=== PATIENT | male | born 1985 | race Caucasian/White ===

== ENCOUNTER 2019-05-14 18:35 | Emergency (ER) | payer OTHER, SELFPAY ==
[2019-05-14 18:36] VITALS: BP 152/75; PULSE 81; RESP 16; TEMP 36.8; O2SAT 98
[2019-05-14] MEDS: Lidocaine/Epi/Tetracaine 50 ML 1 APPLIC TOPICAL (19:45)
[2019-05-14] MEDS: Ondansetron 4 MG/2 ML Vial IV (20:08)
[2019-05-14] MEDS: morphine 8 MG/ML Syringe 6 MG IV (20:08)
[2019-05-14 20:28] LABS: Absolute Lymphocyte Count 2.67 X10^3/ul (0.83-4.51); Absolute Neutrophil Count 9.4 X10^3/uL (2.0-7.7); Basophil# 0.01 X10^3/uL; Basophil% 0.1 % (0-1); Eosinophil# 0.13 X10^3/uL; Eosinophils% 0.9 % (0-5); Hemoglobin 14.6 g/dl (13.0-16.5); Lymphocyte # 2.67 X10^3/ul (4.0); Lymphocyte % 19.1 % (19-41); Mean Corpuscular Hgb 28.8 pg (27.0-32.0); Mean Corpuscular Volume 84.8 fL (80-94); Mean Platelet Vol. 12.2 fl (6.2-12.0); Monocyte# 1.73 X10^3/uL; Monocyte% 12.4 % (0-10); Neutrophil # 9.41 X10^3/uL (2.7-7.7); Neutrophil % 67.2 % (47-70); Platelet Count 186 K/mm3 (150-450); RBC Distribution Width CV 12.4 % (11.6-14.6); RBC Distribution Width SD 37.7 fl (35.1-43.9); Red Blood Count 5.07 M/mm3 (4.6-6.2)
[2019-05-14 20:44] LABS: Anion Gap 7 (5-15); BUN 10 mg/dL (7-18); BUN/Creat Ratio 11.7 RATIO (10-20); Calcium,Total 8.4 mg/dL (8.5-10.1); Chloride 107 mmol/L (98-107); Creatinine, Serum 0.86 mg/dL (0.70-1.30); EST Glomerular Filtration Rate 110 mL/min (>60); Est Glom Filt Rate - Afr Amer 133 mL/min (>60); Estimated Creatinine Clearance 159.42 ml/min; Glucose 81 mg/dL (74-106); Potassium 3.2 mmol/L (3.5-5.1); Sodium Level 141 mmol/L (136-145)
[2019-05-14 21:06] LABS: Differential Indicated SCAN CRITERIA MET; POSITIVE COUNT NO; POSITIVE DIFFERENTIAL YES; POSITIVE MORPHOLOGY NO
[2019-05-14 21:09] LABS: Platelet Estimate ADEQUATE (ADEQ)
[2019-05-14 21:10] LABS: Red Cell Morphology NORM C+C NORMAL (NORM C&C)
[2019-05-14 22:14] VITALS: BP 111/72; PULSE 74; RESP 14; O2SAT 96
--- NOTE | 2019-05-14 22:19 | ED.DCSUM_ITS ---
- ER Visit Summary Date of Service: 05/14/19 Chief Complaint: Left elbow redness and discomfort History of Present Illness: The patient is a 33 M had a recent injury striking his left elbow causing an abrasion. He saw his primary care physician Dr. Luc Teague yesterday. Thought it was cellulitis and infected and started him on Augmentin. Patient is right-hand dominant he is never had any surgery to his left elbow. He has been on the Augmentin one day. The redness is a little worse. He is able to move his elbow. Physical Examination: Young male no acute distress vital signs are stable afebrile. Temperature 98.3. He does not look septic or toxic. HEENT exam unremarkable neck nontender. Lungs clear to auscultation. Heart regular rhythm no murmur. Abdomen soft and nontender. Extremities moves all 4. His left elbow is mildly tender and swollen consistent with cellulitis. There is minimal swelling of the bursa sac. He is able to do flexion extension. There is no signs of septic joint. There is no lymphangitic streaking. No axillary lymphadenopathy. 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 Radial pulse and sensation. Test Results: CBC showed a white count of 14,000. Chemistries are unremarkable with a normal gap and creatinine. Gram stain there is only small amount of fluid it was straw-colored it did not look infected the Gram stain was negative there was no organism. And a culture is pending. There was not enough fluid to do a cell count. The tech told me from what she could see since she saw very few white cells. Clinically the fluid did not look infected. Emergency Department Course and Treatment: Patient was given a dose of Zosyn IV. I did do a arthrocentesis of his left elbow bursa which does not show any signs of a septic bursitis. Clinically he does not have a septic bursitis neither. Treatment Plan: Patient and are comfortable to be discharged home. Continue his Augmentin twice daily. Return if doing worse. Otherwise follow-up with his primary care physician on Friday. Disposition: Discharge Impression: Acute left elbow cellulitis Arthrocentesis ruled out septic bursitis This note was generated with [employer] software. It may contain incorrect words, spelling, and punctuation that were not noted in review of the chart prior to signing ED Disposition - Plan for ED Patient: Referrals: Jonathan Gutierrez MD [Primary Care Provider] -
--- NOTE | 2019-05-14 22:22 | ED.DEP ---
ED Disposition - Plan for ED Patient: Disposition: Home or Assisted Living Instructions: Cellulitis Prescriptions: Hydrocodone/Acetaminophen [[place] 7.5-325 Tablet] 1 ea PO 4X/DAY PRN PRN 7 Days #20 tab PRN Reason: Pain Prescription Printed Ondansetron [Zofran Odt] 4 mg PO Q8H PRN PRN #20 tab PRN Reason: Nausea Prescription Printed Referrals: Jonathan Gutierrez MD [Primary Care Provider] - As soon as possible Additional Instructions: Tylenol Motrin for pain. Continue the antibiotic Augmentin 1 pill twice a day. Follow-up with your doctor no later than Friday. Return to ER feeling worse.
[2019-05-14] MEDS: HYDROcodone Bitartrate/Apap 5/325 Tablet PO (22:42)
[2019-05-17 14:40] LABS: Pathologist Review Reviewed
== END 2019-05-14 22:46 | disposition home or self-care (01) ==
PROVIDERS: Emergency Provider Emergency Medicine; Family Provider Family Medicine; PCP Family Medicine
DX: L03.114 Cellulitis of left upper limb (principal); S50.312A Abrasion of left elbow, initial encounter; X58.XXXA Exposure to other specified factors, initial encounter; Y93.9 Activity, unspecified; Y92.9 Unspecified place or not applicable
CPT/HCPCS: 20605; 20610; 80048; 85025; 87070; 87075; 87205; 96365; 96375; 99283; J7050; A4216; J2405

== ENCOUNTER 2025-05-29 17:10 | Emergency (ER) | payer OTHER, SELFPAY ==
[2025-05-29 17:11] VITALS: BP 119/75; PULSE 63; RESP 18; TEMP 37.1; O2SAT 100; BMI 29.5
--- NOTE | 2025-05-29 17:30 | RAD_ITS ---
PROCEDURE: WRIST MIN 3 VIEWS 05/29/2025 REASON FOR EXAM: INJURY/PAIN TECHNIQUE: WRIST MIN 3 VIEWS COMPARISON: none FINDINGS: Acute comminuted fracture of the distal radial metaphysis and epiphysis with intra-articular involvement. There is suggestion of impaction at the fracture site. No dislocations. No significant degenerative changes. Moderate associated soft tissue swelling. No radiographic foreign body. RAD/Wrist min 3 Views IMPRESSION: Acute comminuted fracture of the distal radial metaphysis and epiphysis with in tra-articular involvement. There is suggestion of impaction at the fracture site. Reading Location: [id number]
--- OUTSIDE RECORDS SUMMARY | 2025-05-29 17:51 | XMS RPT_ITS | CCD ---
Author Organization [facility] Care Team Providers Care Auto Wrecker Name Role Phone Rogelio Gutierrez Unavailable Unavailabl e Unavailable Primary Care Provider Unavailabl e Problems Problem Classification Problem Date Documented Da te Episodic/Chronic Other injuries and conditions due to external causes (1 source) Injury of ribs; Translations: [Unspecified injury of thorax, initial encounter] 09-25-2021 Episodic Results Test Name Value Interpretation Reference Range Facil vasquez RICCARDOKELSIEon 09-25-2021 CNOV Office Visit (UCWSTR) NAEL VERGARA ([id number]) 1985 M Date Time Provider Department 09/25/21 10:15 AM SIVAKUMAR GALARZA [facility] During your visit today, we recorded the following information about you: Temperature Pulse Respiration Blood pressure 98.6 degrees 64/minute 16/minute 128/80 Weight 118.8 kg Sivakumar Galarza APRN.CAR FERRY MASTER 09/25/2021 11:47 AM Signed Subjective HPI Nontoxic male presents urgent care chief complaint left sided rib injury. Duration of symptoms 24 hours. Associated symptoms left rib pain. 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 Fall was approximately 5 feet. States initially this did not the wind out of him. States he did have significant pain after injury pain did improve. Presents today to rule out rib fractures. Denies any other injuries. No head no neck no back pain. No hematuria. no LOC. Denies any bruising. Denies any other injuries. Denies any hemoptysis or shortness of breath. Past medical history prescription medication use allergies reviewed. .Patient presents with: Rib Injury: left side rib pain after fall off of combine onto an auger head x 24 hours History reviewed. No pertinent past medical history. History reviewed. No pertinent surgical history. ALLERGIES Patient has no known allergies. MEDICATIONS No prescriptions on file. History reviewed. No pertinent family history. Social History Tobacco Use - Smoking status: Never Smoker - Smokeless tobacco: Never Used Substance Use Topics - Alcohol use: Not on file - Drug use: Not on file BP 128/80 Pulse 64 Temp 37 ?C (98.6 ?F) Resp 16 Wt 118.8 kg (262 lb) SpO2 96% Review of Systems Constitutional: Negative for chills, fever and malaise/fatigue. HENT: Negative for congestion, ear discharge, ear pain, sinus pain and sore throat. Eyes: Negative for blurred vision, pain, discharge and redness. Respiratory: Negative for cough, hemoptysis, sputum production, shortness of breath, wheezing and stridor. Cardiovascular: Negative for chest pain. Gastrointestinal: Negative for abdominal pain, diarrhea, nausea and vomiting. Musculoskeletal: Positive for falls. Negative for back pain, joint pain, myalgias and neck pain. Skin: Negative for itching and rash. Neurological: Negative for dizziness and headaches. Objective Physical Exam Constitutional: General: He is not in acute distress. Appearance: He is not diaphoretic. HENT: Head: Normocephalic. Eyes: Conjunctiva/sclera: Conjunctivae normal. Pupils: Pupils are equal, round, and reactive to light. Cardiovascular: Rate and Rhythm: Normal rate and regular rhythm. Heart sounds: Normal heart sounds. Pulmonary: Effort: Pulmonary effort is normal. No tachypnea, accessory muscle usage or respiratory distress. Breath sounds: Normal breath sounds. No stridor. Abdominal: Palpations: Abdomen is soft. Tenderness: There is no abdominal tenderness. There is no right CVA tenderness, left CVA tenderness or guarding. Musculoskeletal: Cervical back: Normal, normal range of motion and neck supple. No rigidity or tenderness. Thoracic back: Normal. Lumbar back: Normal. Back: Comments: Pain with palpation over mid and lower rib. No crepitus. No deformities. No pain with palpation over abdomen or flank. No ecchymosis. No erythema. Lymphadenopathy: Cervical: No cervical adenopathy. Skin: General: Skin is warm and dry. Neurological: Mental Status: He is alert and oriented to person, place, and time. ASSESSMENT/PLAN: 1. Traumatic injury of rib - ICD9: 959.11, ICD10: S29.9XXA - XR RIBS/CHEST 3V AP RIB/OBLS/CXR LEFT IMPRESSION: Left 10th rib fracture. Pain with palpation over ribs only. No pain with palpation to lower abdominal region or lower flank. No bruising. No spinal tenderness. No hematuria. no head no neck no back injuries. No and with palpation over abdominal region. We discussed treatment therapies. We discussed supportive therapies. We discussed x-ray only rules out bony injuries and does reveal any internal bleeding or soft tissue injuries. We discussed prompt red flag return evaluation of symptoms. Patient was educated on supportive therapies. Patient will follow up with primary care provider as needed. Patient was instructed to immediately proceed to emergency room for any new, worsening, or symptoms lasting longer than anticipated. The patient's clinical presentation is otherwise unremarkable at this time. Based on exam and clinical finding, the patient is stable for discharge. Plan of care was discussed with patient. Patient verbalizes understanding and agrees to plan of care. This note was generated using StyleShare software. It may contain errors in wording, punctuation, or spelling. Sivakumar Galarza APRN.CAR FERRY MASTER (more content not included)... Normal [facility] XR RIB/CHST 3V AP RIB/OBL/CH ST Vinay 09-25-2021 XR RIB/CHST 3V AP RIB/OBL/CHST L * * *Final Report* * * DATE OF EXAM: Sep 25 2021 11:07AM WOX 5243 - XR RIB/CHST 3V AP RIB/OBL/CHST L / PROCEDURE REASON: Traumatic injury of rib * * * * Physician Interpretation * * * * XR RIB/CHST 3V AP RIB/OBL/CHST L EXAM DATE/TIME: 09/25/2021 11:07 AM COMPARISON: None. CLINICAL INDICATION/HISTORY: Fell TECHNIQUE: AP views centered high and low and oblique view of left ribs are presented for interpretation. PA view of the chest is also present. FINDINGS: Nondisplaced left 10th rib fracture is demonstrated. There is no pneumothorax or pleural effusion. The underlying visualized lungs appear normal. IMPRESSION: Left 10th rib fracture. Power Tool Repair Technician: PSCB Transcribe Date/Time: Sep 25 2021 11:20A Dictated by : STACIE EDMOND MD This examination was interpreted and the report reviewed and electronically signed by: STACIE EDMOND MD on Sep 25 2021 11:27AM EST [id number] Normal [facility] XR Ribs - left Views and Shannen st PAon 09-25-2021 IMPRESSION: Left 10th rib fracture. Power Tool Repair Technician: PSCB Transcribe Date/Time: Sep 25 2021 11:20A Dictated by : STACIE EDMOND MD This examination was interpreted and the report reviewed and electronically signed by: STACIE EDMOND MD on Sep 25 2021 11:27AM EST DIVISION OF RADIOLOGY * * *Final Report* * * DATE OF EXAM: Sep 25 2021 11:07AM WOX 5243 - XR RIB/CHST 3V AP RIB/OBL/CHST L / PROCEDURE REASON: Traumatic injury of rib * * * * Physician Interpretation * * * * XR RIB/CHST 3V AP RIB/OBL/CHST L EXAM DATE/TIME: 09/25/2021 11:07 AM COMPARISON: None. CLINICAL INDICATION/HISTORY: Fell TECHNIQUE: AP views centered high and low and oblique view of left ribs are presented for interpretation. PA view of the chest is also present. FINDINGS: Nondisplaced left 10th rib fracture is demonstrated. There is no pneumothorax or pleural effusion. The underlying visualized lungs appear normal. DIVISION OF RADIOLOGY Provider, [facility] [place] - 09/25/2021 * * *Final Report* * * DATE OF EXAM: Sep 25 2021 11:07AM WOX 5243 - XR RIB/CHST 3V AP RIB/OBL/CHST L / PROCEDURE REASON: Traumatic injury of rib * * * * Physician Interpretation * * * * XR RIB/CHST 3V AP RIB/OBL/CHST L EXAM DATE/TIME: 09/25/2021 11:07 AM COMPARISON: None. CLINICAL INDICATION/HISTORY: Fell TECHNIQUE: AP views centered high and low and oblique view of left ribs are presented for interpretation. PA view of the chest is also present. FINDINGS: Nondisplaced left 10th rib fracture is demonstrated. There is no pneumothorax or pleural effusion. The underlying visualized lungs appear normal. IMPRESSION IMPRESSION: Left 10th rib fracture. Power Tool Repair Technician: DARIUS Transcribe Date/Time: Sep 25 2021 11:20A Dictated by : STACIE EDMOND MD This examination was interpreted and the report reviewed and electronically signed by: STACIE EDMOND MD on Sep 25 2021 11:27AM EST [facility] Radiology Study observation (narrative) [facility] XR Ribs - left Views and Shannen st PAOrdered By: Ccf Provider on 09-25-2021 [facility] Otheron 10-29-2019 NONE SEEN XN-[id number]-Bsf l and Work Phone: SPERM COUNT, POST-OPon 10-29 SPERM COUNT, POST-OP NONE SEEN Normal [facility] Comment on above: Performed By: #### S ECON #### [id number] [place] [address] Culture, Body Fluidon 2018 INR Coag (Bld) [Relative time] Order Date: 05/14/19 GRAM STAIN RESULTS CALLED TO DR MORIN 05/14/198 Karen Del Rio. REPORT READ BACK BY SAME. List Antibiotics Last 48 Hours? . List Antibiotics to be Started? . Comments: L ELBOW Gram Stain Centrifuged Specimen? Culture performed on centrifuged specimen Gram Stain No organisms seen Body Fluid Cult Culture exhibits no growth. Cult, Anaerobic No growth in 5 days. Normal [facility] Comment on above: Performed By: #### M 100.1300 #### [facility] Laboratory [address] [place], [address] CBC W/Diff, Automatedon 05-03 PATH REV Reviewed Normal [facility] Comment on above: Result Comment: Leuk ocytosis. Clinical correlation necessary. Seb Rhodes M.D. 05/17/19 AMENDED REPORT 05/17/19 [id number] PATH REV previously reported as: March Performed By: #### L 100.0100 #### [facility] [address] [place], [address] Discharge Instructionon 05-03 Discharge Instruction [facility] Medical Records Department [address] [place] [address] Discharge Instruction 05/14/192 MR#: [id number] Acct: [id number] Name: NAEL VERGARA Rep #: [id number] : 1985 33 From: Alexander Morin MD PCP: Rogelio Gutierrez MD Status: DEP ER ED Disposition - Plan for ED Patient: Disposition: Home or Assisted Living Instructions: Cellulitis Prescriptions: Hydrocodone/Acetamin ophen [[place] 7.5-325 Tablet] 1 ea PO 4X/DAY PRN PRN 7 Days #20 tab PRN Reason: Pain Prescription Printed Ondansetron [Zofran Odt] 4 mg PO Q8H PRN PRN #20 tab PRN Reason: Nausea Prescription Printed Referrals: Jonathan Gutierrez MD [Primary Care Provider] - As soon as possible Additional Instructions: Tylenol Motrin for pain. Continue the antibiotic Augmentin 1 pill twice a day. Follow-up with your doctor no later than Friday. Return to ER feeling worse. What to do if you have Problems For any increased pain, shortness of breath, bleeding, nausea or vomiting, chest pain, or any unexpected problems, contact your Primary Care Provider. Call [facility] ([phone]) or report to the closest Emergency Room. Call 911 if necessary. 05/15/19 0032 Date Alexander Morin MD Cosigner Signature (If Indicated): Date CC: Rogelio Gutierrez MD [facility] Emergency Department Summary on 05-15-2019 Emergency Department Summary [facility] Medical Records Department [address] [place] [address] Emergency Department Summary 05/14/19 2219 MR#: [id number] Acct: [id number] Name: NAEL VERGARA Rep #: [id number] : 1985 33 From: Alexander Morin MD PCP: Rogelio Gutierrez MD Status: DEP ER - ER Visit Summary Date of Service: 05/14/19 Chief Complaint: Left elbow redness and discomfort History of Present Illness: The patient is a 33 M had a recent injury striking his left elbow causing an abrasion. He saw his primary care physician Dr. Luc Teague yesterday. Thought it was cellulitis and infected and started him on Augmentin. Patient is right-hand dominant he is never had any surgery to his left elbow. He has been on the Augmentin one day. The redness is a little worse. He is able to move his elbow. Physical Examination: Young male no acute distress vital signs are stable afebrile. Temperature 98.3. He does not look septic or toxic. HEENT exam unremarkable neck nontender. Lungs clear to auscultation. Heart regular rhythm no murmur. Abdomen soft and nontender. Extremities moves all 4. His left elbow is mildly tender and swollen consistent with cellulitis. There is minimal swelling of the bursa sac. He is able to do flexion extension. There is no signs of septic joint. There is no lymphangitic streaking. No axillary lymphadenopathy. His left hand is neurovascular intact with normal latin teacher strength. Radial pulse and sensation. Test Results: CBC showed a white count of 14,000. Chemistries are unremarkable with a normal gap and creatinine. Gram stain there is only small amount of fluid it was straw-colored it did not look infected the Gram stain was negative there was no organism. And a culture is pending. There was not enough fluid to do a cell count. The tech told me from what she could see since she saw very few white cells. Clinically the fluid did not look infected. Emergency Department Course and Treatment: Patient was given a dose of Zosyn IV. I did do a arthrocentesis of his left elbow bursa which does not show any signs of a septic bursitis. Clinically he does not have a septic bursitis neither. Treatment Plan: Patient and are comfortable to be discharged home. Continue his Augmentin twice daily. Return if doing worse. Otherwise follow-up with his primary care physician on Friday. Disposition: Discharge Impression: Acute left elbow cellulitis Arthrocentesis ruled out septic bursitis This note was generated with StyleShare dictation software. It may contain incorrect words, spelling, and punctuation that were not noted in review of the chart prior to signing ED Disposition - Plan for ED Patient: Referrals: Jonathan Gutierrez MD [Primary Care Provider] - What to do if you have Problems For any increased pain, shortness of breath, bleeding, nausea or vomiting, chest pain, or any unexpected problems, contact your Primary Care Provider. Call [facility] ([phone]) or report to the closest Emergency Room. Call 911 if necessary. 05/15/19 0032 Date Alexander Morin MD Cosigner Signature (If Indicated): Date CC: Rogelio Gutierrez MD Normal [facility] Basic Metabolic Profile (BMP )on 05-14-2019 Calcium [Mass/Vol] 8.4 mg/dL Low 8.5-10.1 [facility] Comment on above: Performed By: #### L 500.2500 #### [facility] [address] [place], [address] Chloride [Moles/Vol] 107 mmol/L Normal 98-107 [facility] Comment on above: Performed By: #### L 500.2500 #### [facility] [address] [place], [address] CO2 [Moles/Vol] 27.0 mmol/L Normal 21.0-32.0 [facility] Comment on above: Performed By: #### L 500.2500 #### [facility] [address] [place], [address] Creatinine [Mass/Vol] 0.86 mg/dL Normal 0.70-1.30 [facility] Comment on above: Result Comment: The validity of the calculated GFR AND GFRAA in patients over 70 years has not been determined. Clinical correlation is essential. Performed By: #### L 500.2500 #### [facility] [address] [place], [address] EST GFR - AA 133 mL/min Normal >60 [facility] Comment on above: Result Comment: Afri can Malian GFR Calc Performed By: #### L 500.2500 #### [facility] [address] [place], [address] Estimated CRCL 159.42 ml/min Normal [facility] Comment on above: Performed By: #### L 500.2500 #### [facility] [address] [place], [address] GAP 7 Normal 5-15 [facility] Comment on above: Performed By: #### L 500.2500 #### [facility] [address] [place], [address] GFR/1.73 sq M predicted among non-blacks MDRD (S/P/Bld) [Vol rate/Area] 110 mL/min/{1.73_m2} Normal >60 [facility] Comment on above: Result Comment: Non- GFR Calc Performed By: #### L 500.2500 #### [facility] [address] [place], [address] Glucose [Mass/Vol] 81 mg/dL Normal 74-106 [facility] Comment on above: Result Comment: Isreal stewart note revised GLUCOSE reference range effective 2017. Performed By: #### L 500.2500 #### [facility] [address] [place], [address] Potassium [Moles/Vol] 3.2 mmol/L Low 3.5-5.1 [facility] Comment on above: Performed By: #### L 500.2500 #### [facility] [address] [place], [address] Sodium [Moles/Vol] 141 mmol/L Normal 136-145 [facility] Comment on above: Performed By: #### L 500.2500 #### [facility] [address] [place], [address] Urea nitrogen [Mass/Vol] 11.7 RATIO Normal 10-20 [facility] Comment on above: Performed By: #### L 500.2500 #### [facility] [address] [place], [address] Urea nitrogen [Mass/Vol] 10 mg/dL Normal 7-18 [facility] Comment on above: Performed By: #### L 500.2500 #### [facility] [address] [place], [address] CBC W/Diff, Automatedon 05-03 Platelets (Bld) [#/Vol] ADEQUATE Normal ADEQ [facility] Comment on above: Performed By: #### L 100.0100 #### [facility] [address] [place], [address] RED CELL MORPH NORM C+C Normal NORM C AND C [facility] Comment on above: Performed By: #### L 100.0100 #### [facility] [address] [place], [address] SMEAR COMMENT SEE COMMENT Normal [facility] Comment on above: Result Comment: MONO CYTOSIS NOTED Performed By: #### L 100.0100 #### [facility] [address] [place], [address] Absolute Neut 9.4 X10 3/uL High 2.0-7.7 [facility] Comment on above: Performed By: #### L 100.0100 #### [facility] [address] [place], [address] Basophils/100 WBC (Bld) 0.1 % Normal 0-1 [facility] Comment on above: Performed By: #### L 100.0100 #### [facility] [address] [place], [address] Eosinophils/100 WBC (Bld) 0.9 % Normal 0-5 [facility] Comment on above: Performed By: #### L 100.0100 #### [facility] [address] [place], [address] Erythrocyte distribution width (RBC) [Ratio] 12.4 % Normal 11.6-14.6 [facility] Comment on above: Performed By: #### L 100.0100 #### [facility] [address] [place], [address] Hematocrit (Bld) [Volume fraction] 43.0 % Normal 40-54 [facility] Comment on above: Performed By: #### L 100.0100 #### [facility] [address] [place], [address] Hemoglobin (Bld) [Mass/Vol] 14.6 g/dL Normal 13.0-16.5 [facility] Comment on above: Performed By: #### L 100.0100 #### [facility] [address] [place], [address] IM GRAN % 0.300 % Normal 0.0-0.9 [facility] Comment on above: Result Comment: IG% - Immature Granulocytes (promyelocytes, myelocytes and metamyelocytes) > 1% indicates that a LEFT SHIFT is Present. Performed By: #### L 100.0100 #### [facility] [address] [place], [address] Lymphocytes (Bld) [#/Vol] 2.67 X10 3/ul Normal 0.83-4.51 [facility] Comment on above: Performed By: #### L 100.0100 #### [facility] [address] [place], [address] Lymphocytes/100 WBC (Bld) 19.1 % Normal 19-41 [facility] Comment on above: Performed By: #### L 100.0100 #### [facility] [address] [place], [address] MCH (RBC) [Entitic mass] 28.8 pg Normal 27.0-32.0 [facility] Comment on above: Performed By: #### L 100.0100 #### [facility] [address] [place], [address] MCHC (RBC) [Mass/Vol] 34.0 g/gl Normal 32-36 [facility] Comment on above: Performed By: #### L 100.0100 #### [facility] [address] [place], [address] MCV (RBC) [Entitic vol] 84.8 fL Normal 80-94 [facility] Comment on above: Performed By: #### L 100.0100 #### [facility] [address] [place], [address] Monocytes/100 WBC (Bld) 12.4 % High 0-10 [facility] Comment on above: Performed By: #### L 100.0100 #### [facility] [address] [place], [address] Neutrophils/100 WBC (Bld) 67.2 % Normal 47-70 [facility] Comment on above: Performed By: #### L 100.0100 #### [facility] [address] [place], [address] Platelet mean volume (Bld) [Entitic vol] 12.2 fL High 6.2-12.0 [facility] Comment on above: Performed By: #### L 100.0100 #### [facility] [address] [place], [address] Platelets (Bld) [#/Vol] 186 10*3/uL Normal 150-450 [facility] Comment on above: Performed By: #### L 100.0100 #### [facility] [address] [place], [address] RBC (Bld) [#/Vol] 5.07 M/mm3 Normal 4.6-6.2 [facility] Comment on above: Performed By: #### L 100.0100 #### [facility] [address] [place], [address] RDW SD 37.7 fl Normal 35.1-43.9 [facility] Comment on above: Performed By: #### L 100.0100 #### [facility] [address] [place], [address] WBC (Bld) [#/Vol] 14.0 10*3/uL High 4.4-11.0 [facility] Comment on above: Performed By: #### L 100.0100 #### [facility] [address] [place], [address] Encounters Encounter Date Encounter Type Care Provider Facility Start: 09-25-2021 End: 09-25-2021 [facility] Comment on above: Traumatic injury of rib [S29.9XXA] Procedures Date Procedure Procedure Detail Performing Clinician Start: 09-25-2021 Radex ribs uni w/posteroant ch minimum 3 views Sivakumar Galarza APRN.CAR FERRY MASTER Work Phone: Plan of Treatment Date Care Activity Detail Author Start: 07-04-2024 Covid-19 Vaccine ( season) Covid-19 Vaccine ( season) [facility] Start: 07-04-2024 Influenza vaccination Influenza Vacc ine (#1) [facility] Start: 2021 Lipid panel Lipid Screening [facility] Start: 08-25-2019 Urine microalbumin profile DTa P,Tdap,Td Vaccine (2 - Td or Tdap) [facility] Start: 2005 Hepatitis B Vaccine (1 of 3 - 19+ 3-dose series) Hepatitis B Vaccine (1 of 3 - 19+ 3-dose series) [facility] Start: 2004 Anxiety Screening Anxiety Screening [facility] Start: 2004 Depression Screening Depression Scre ening [facility] Start: 2004 Hepatitis C screening Hepatitis C Sc reening [facility] Start: 2004 HIV screening HIV Screening [facility] Immunizations Immunization Date Immunization Notes Care Provider Tej craven 08-25-2009 tetanus toxoid, redu fer diphtheria toxoid, and acellular pertussis vaccine, adsorbed [facility] [place] Work Phone: [facility] Work Phone: Payers Date Payer Category Payer Private Health Insurance [employer] A ET[employer] POS [id number] 2017-Present [phone] [address] [place] [address] POS [id number] Social History Date Type Detail Facility Assertion Unknown if ever smoked [facility] [employer] Work Phone: Start: 09-25-[address] [facility] Never smoked tobacco [facility] Start: 09-25-2021 Tobacco use and exposure Smokeless tobacco non-user [facility] Start: 09-25-2021 Alcoholic beverage intake Not Asked [facility] Start: 09-25-2021 History of Social function [facility] Start: 09-25-[address] [facility] Start: 1985 Sex assigned at Not on file [facility] Start: 08-26-2021 End: 09-25-2021 Exposure to SARS-CoV-2 (event) Not sure [facility] Functional Status Date Assessment Result Facility NEGATED: Highlighted row Functional performance Functional status health issues are not documented [facility] Work Phone: Mental Status Date Assessment Result Facility NEGATED: Highlighted row Cognitive function [Interpretation] Cognitive status health issues are not documented [facility] Work Phone: Progress note 09-25-2021 Note Date & Type Note Facility 09-25-2021 Note HNO ID: [id number] Author: RT Camilo(R) Service: ? Author Type: Technologist Type: Progress Notes Filed: 09/25/2021 11:07 AM Note Text: Radiology Service Progress Note PATIENT NAME: Nael Vergara DATE OF SERVICE: September 25, 2021 TIME: 10:57 AM PATIENT IDENTITY VERIFICATION COMPLETED USING TWO (2) IDENTIFIERS: Name and Date of confirmed by patient verbally. FALL SCREENING: Has the patient had 2 falls in the last year or 1 fall with injury or currently using an Ambulatory Assistive Device (Walker, Cane, Wheelchair, Crutches, etc.)? Yes, Patient High Risk for Falls What interventions were put in place to prevent falls during this visit? Increased Observations by Caregivers PATIENT GENDER DATA: Male PATIENT RELEVANT IMPLANT DATA REVIEWED: Not Applicable RADIOLOGY DEPARTMENT: General X-ray: Exam(s) Completed: Rib X-Ray: Left PERIPHERAL IV DATA: Not applicable SIGNED BY: RT Camilo(R) September 25, 2021 10:57 AM [facility] Progress note 09-25-2021 Note Date & Type Note Facility 09-25-2021 Note HNO ID: [id number] Author: Sivakumar Galarza APRN.[employer] Service: ? Author Type: Nurse Practitioner Type: Progress Notes Filed: 09/25/2021 11:47 AM Note Text: Subjective HPI Nontoxic male presents urgent care chief complaint left sided rib injury. Duration of symptoms 24 hours. Associated symptoms left rib pain. 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 Fall was approximately 5 feet. States initially this did not the wind out of him. States he did have significant pain after injury pain did improve. Presents today to rule out rib fractures. Denies any other injuries. No head no neck no back pain. No hematuria. no LOC. Denies any bruising. Denies any other injuries. Denies any hemoptysis or shortness of breath. Past medical history prescription medication use allergies reviewed. .Patient presents with: Rib Injury: left side rib pain after fall off of combine onto an auger head x 24 hours History reviewed. No pertinent past medical history. History reviewed. No pertinent surgical history. ALLERGIES Patient has no known allergies. MEDICATIONS No prescriptions on file. History reviewed. No pertinent family history. Social History Tobacco Use - Smoking status: Never Smoker - Smokeless tobacco: Never Used Substance Use Topics - Alcohol use: Not on file - Drug use: Not on file BP 128/80 Pulse 64 Temp 37 ?C (98.6 ?F) Resp 16 Wt 118.8 kg (262 lb) SpO2 96% Review of Systems Constitutional: Negative for chills, fever and malaise/fatigue. HENT: Negative for congestion, ear discharge, ear pain, sinus pain and sore throat. Eyes: Negative for blurred vision, pain, discharge and redness. Respiratory: Negative for cough, hemoptysis, sputum production, shortness of breath, wheezing and stridor. Cardiovascular: Negative for chest pain. Gastrointestinal: Negative for abdominal pain, diarrhea, nausea and vomiting. Musculoskeletal: Positive for falls. Negative for back pain, joint pain, myalgias and neck pain. Skin: Negative for itching and rash. Neurological: Negative for dizziness and headaches. Objective Physical Exam Constitutional: General: He is not in acute distress. Appearance: He is not diaphoretic. HENT: Head: Normocephalic. Eyes: Conjunctiva/sclera: Conjunctivae normal. Pupils: Pupils are equal, round, and reactive to light. Cardiovascular: Rate and Rhythm: Normal rate and regular rhythm. Heart sounds: Normal heart sounds. Pulmonary: Effort: Pulmonary effort is normal. No tachypnea, accessory muscle usage or respiratory distress. Breath sounds: Normal breath sounds. No stridor. Abdominal: Palpations: Abdomen is soft. Tenderness: There is no abdominal tenderness. There is no right CVA tenderness, left CVA tenderness or guarding. Musculoskeletal: Cervical back: Normal, normal range of motion and neck supple. No rigidity or tenderness. Thoracic back: Normal. Lumbar back: Normal. Back: Comments: Pain with palpation over mid and lower rib. No crepitus. No deformities. No pain with palpation over abdomen or flank. No ecchymosis. No erythema. Lymphadenopathy: Cervical: No cervical adenopathy. Skin: General: Skin is warm and dry. Neurological: Mental Status: He is alert and oriented to person, place, and time. ASSESSMENT/PLAN: 1. Traumatic injury of rib - ICD9: 959.11, ICD10: S29.9XXA - XR RIBS/CHEST 3V AP RIB/OBLS/CXR LEFT IMPRESSION: Left 10th rib fracture. Pain with palpation over ribs only. No pain with palpation to lower abdominal region or lower flank. No bruising. No spinal tenderness. No hematuria. no head no neck no back injuries. No and with palpation over abdominal region. We discussed treatment therapies. We discussed supportive therapies. We discussed x-ray only rules out bony injuries and does reveal any internal bleeding or soft tissue injuries. We discussed prompt red flag return evaluation of symptoms. Patient was educated on supportive therapies. Patient will follow up with primary care provider as needed. Patient was instructed to immediately proceed to emergency room for any new, worsening, or symptoms lasting longer than anticipated. The patient's clinical presentation is otherwise unremarkable at this time. Based on exam and clinical finding, the patient is stable for discharge. Plan of care was discussed with patient. Patient verbalizes understanding and agrees to plan of care. This note was generated using [employer] software. It may contain errors in wording, punctuation, or spelling. Sivakumar Galarza APRN.[facility] History of Present illness Narrative 09-25-2021 Jaime Laughlin RT(R) - 09/25/2021 10:40 AM EST Note Date & Type Note Facility 09-25-2021 History of Presen t illness Narrative Radiology Service Progress Note PATIENT NAME: Nael Vergara DATE OF SERVICE: September 25, 2021 TIME: 10:57 AM PATIENT IDENTITY VERIFICATION COMPLETED USING TWO (2) IDENTIFIERS: Name and Date of confirmed by patient verbally. FALL SCREENING: Has the patient had 2 falls in the last year or 1 fall with injury or currently using an Ambulatory Assistive Device (Walker, Cane, Wheelchair, Crutches, etc.)? Yes, Patient High Risk for Falls What interventions were put in place to prevent falls during this visit? Increased Observations by Caregivers PATIENT GENDER DATA: Male PATIENT RELEVANT IMPLANT DATA REVIEWED: Not Applicable RADIOLOGY DEPARTMENT: General X-ray: Exam(s) Completed: Rib X-Ray: Left PERIPHERAL IV DATA: Not applicable SIGNED BY: RT Camilo(R) September 25, 2021 10:57 AM documented in this encounter [facility] Evaluation note Note Date & Type Note Facility Evaluation note Diagnosis Traumatic injury of rib documented in this encounter [facility] Reason for referral (narrative) Diagnostic Procedure Only (Urgent) - Closed Note Date & Type Note Facility Reason for referral (narrati ve) Specialty Diagnoses / Procedures Referred By Contac t Referred To Contact XR IMAGING Diagnoses Traumatic injury of rib Procedures XR RIBS/CHEST 3V AP RIB/OBLS/CXR LEFT X-RAY RIBS, CHEST 3+ VW Sivakumar Galarza APRN.CNP [address] [place] [address] [place] [id number] Referral ID Status Reason Start Date Expiration Date V isits Requested Visits Authorized Closed Auto-Generated Referral Clearance Not Met -Financial Clearance Bypassed 09/25/2021 10/25/2022 1 1 [facility] Reason for visit Narrative Diagnostic Procedure Only (Urgent) - Closed Note Date & Type Note Facility Reason for visit Narrative Specialty Diagnoses / Procedures Referred By Contac t Referred To Contact XR IMAGING Diagnoses Traumatic injury of rib Procedures XR RIBS/CHEST 3V AP RIB/OBLS/CXR LEFT X-RAY RIBS, CHEST 3+ VW Sivakumar Galarza, NANCY.[employer] [address] [place] [address] [place] [id number] Referral ID Status Reason Start Date Expiration Date V isits Requested Visits Authorized Closed Auto-Generated Referral Clearance Not Met -Financial Clearance Bypassed 09/25/2021 10/25/2022 1 1 [facility] Summary Purpose Family History No Family History Records FoundNo Family History Records FoundNo Family History Records Found Advance Directives No Advanced Directives Records FoundNo Advanced Directives Records FoundNo Advanced Directives Records Found Additional Source Comments (unrecognized sect ion and content) No Status Records FoundNo Status Records FoundNo Status Records Found INFORMATION SOURCE (unrecogn ized section and content) DATE CREATED AUTHOR 05/20/2019 [facility] DATE CREATED AUTHOR AUTHOR'S ORGANIZ ATION 10/31/2019 [facility] DATE CREATED AUTHOR AUTHOR'S ORGANIZ ATION 12/11/2021 [facility] Source Comments (unrecognize d section and content) In the event this informatio n is protected by the Federal Confidentiality of Alcohol and Drug Abuse Patient Records regulations: The Federal rules restrict any use of the information to criminally investigate or prosecute any alcohol or drug abuse patient.[facility] FOR RECORDS PERTAINING TO PATIENTS WHO ARE OR HAVE BEEN ENROLLED IN A CHEMICAL DEPENDENCY/SUBSTANCEABUSE PROGRAM, SOME INFORMATION MAY BE OMITTED. This clinical summary was aggregated from multiple sources. Caution should be exercised in using it in the provision of clinical care. This summary normalizes information from multiple sources, and as a consequence, information in this document may materially change the coding, format and clinical context of patient data. In addition, data may be omitted in some cases. CLINICAL DECISIONS SHOULD BE BASED ON THE PRIMARY CLINICAL RECORDS. [facility] [employer] [facility]. provides no warranty or guarantee of the accuracy or completeness of information in this document.
[2025-05-29] MEDS: Lidocaine 1% (20 ml mdv) 20 ML Vial 10 ML OPERA.SITE (18:48)
--- NOTE | 2025-05-29 19:03 | EX.ED.UPPERE ---
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 He fell and stopped his fall by putting his left upper extremity out of work. He states he felt a snap and pop. He does not want to use the left upper extremity. He denies head trauma. Denies neck pain. He denies paresthesia, anesthesia or weakness in his left upper extremity. He has never injured that wrist in the past. Prior similar symptoms: No Recent Illness/Hospitalization: No [facility] Home Medications ?Medication ?Instructions ?Recorded ?Last Taken ?Type escitalopram oxalate 20 mg tablet 20 mg PO DAILY 05/14/19 Unknown History ondansetron 4 mg disintegrating 4 mg PO Q8H PRN PRN Nausea #20 tabs 05/14/19 Unknown Rx tablet oxycodone-acetaminophen 5 mg-325 1 tab PO Q6H PRN PRN Pain 3 days 05/29/25 Unknown Rx mg tablet #12 TABLETS Allergy/AdvReac Type Severity Reaction Status Date / Time No Known Allergies Allergy Verified 05/29/25 17:10 Social History (Updated 05/29/25 @ 19:[address] Maurizio Lyons MD) household members: spouse Smoking Status: Never smoker ROS ROS ED Gastrointestinal Gastrointestinal: Reports nausea; Denies vomiting Musculoskeletal Musculoskeletal: Reports other Details: Per HPI narrative ; Denies back pain, myalgias or neck pain Integumentary Reports Abrasions and rash Neurologic Neurologic: Denies paresthesias or weakness Psychiatric Psychiatric: Denies anxiety or depression Hematologic/Lymphatic Hematologic/Lymphatic: Denies easy bleeding or easy bruising EXAM Physical Exam Const Vital Signs: 05/29/25 17:11 Temperature 98.7 F Temperature Source Oral Pulse Rate 63 Respiratory Rate 18 Blood Pressure 119/75 Blood Pressure Mean 89 Pulse Ox 100 Positive well nourished and well developed Constitutional Narrative: Vitals are normal. Patient appears uncomfortable. General Appearance ED: well developed HEENT Reports moist mucous membranes normocephalic and atraumatic Eyes PERRL and EOMs intact bilaterally Resp normal respiratory effort Cardio regular rate and regular rhythm Extremity Negative for normal to inspection or full ROM Extremity Narrative: What appears to be a silver fork deformity of his left wrist. There is no pain to palpation in the anatomical snuffbox or axial loading the thumb. Median, radial and ulnar function intact. Capillary refill is normal in the thumb and fingers. There is pain to the patient over the distal radius. There is a step-off. There is no pain ovation over the distal ulna, medial lateral epicondyle, olecranon process or radial head. There is no pain to palpation over the metacarpal bones or phalanges of his thumb or fingers. Neuro oriented x3, CN's II-XII intact bilaterally, no focal motor deficits and no sensory deficits noted Sensorium / Orientation: alert Psych mental status grossly normal Skin General Skin Exam: Negative for petechiae Lesions: no lesions Rashes: no rashes Trauma: no lacerations or abrasions MDM MDM MDM Narrative Medical decision making narrative: Will obtain x-ray to determine if patient has a fracture, fracture or dislocation and whether it is extra-articular or intra-articular. Radiography Chest X-Ray - ED: Read by ED Physician (Three-view x-ray of the left wrist reveals a comminuted distal radial fracture with intra-articular involvement. This appears to be impacted. The AP view reveals proper alignment. On the lateral view there appears to be displacement of the fragment on the ulnar side. Furthermore, there is loss o) and - (Postreduction film reveals alignment of all fragments. There is no step-off with regards to the intra-articular fracture.) CTA PE Study: - Diagnostic Testing: Clinical Impression(s) from Imaging Studies Wrist X-Ray 05/29/25 17:30 IMPRESSION: Acute comminuted fracture of the distal radial metaphysis and epiphysis with intra-articular involvement. There is suggestion of impaction at the fracture site. Reading Location: [facility] Management Discussion w/another healthcare provider: [employer] Helper (Spoke with Dr. Mina Stevens on-call for orthopedics. Patient to call office to be seen later this week.) Treatment and Re-Evaluation Narrative: Plan hematoma block placing weights and attempt to improve the alignment of the fracture. Procedures Upper Extremity Splints Upper Extremity Splint: Plaster and - (AP Short arm converted to a sugar-tong) Splint Fabrication: Fabricated Location: Left Discharge Plan Triage Chief Complaint: Upper Extremity Injury ED Provider: Maurizio Lyons Dx/Rx/DC Orders Clinical Impression: Intra-articular fracture of distal end of left radius with volar angulation, Injury due to fall Instructions: ED Colles Fracture, Reduction Required Prescriptions: New oxycodone-acetaminophen 5-325 mg tablet 1 tab PO Q6H PRN PRN (Reason: Pain) 3 Days Qty: 12 0RF No Action escitalopram oxalate 20 MG tablet 20 mg PO DAILY ondansetron 4 MG tablet 4 mg PO Q8H PRN PRN (Reason: Nausea) Qty: 20 0RF Primary Care Provider: Rogelio Gutierrez Referrals: Rogelio Gutierrez MD [Primary Care Provider] - Mina Stevens MD [Med Staff - Active Staff] - 5-7 Days Activity Restrictions/Additional Instructions: 1. Keep splint absolutely clean and dry. 2. Apply ice 6-10 times a day 3. You must keep your wrist elevated is much as possible. Elevation is your wrist above your nose. 4. Take medication as needed for pain Print Language: New Zealander Disposition Disposition: Home, Self Care
--- NOTE | 2025-05-29 19:50 | RAD_ITS ---
PROCEDURE: WRIST MIN 3 VIEWS 05/29/2025 REASON FOR EXAM: POSTREDUCTION TECHNIQUE: WRIST MIN 3 VIEWS COMPARISON: Earlier in the day XR FINDINGS: Interval placement of casting material. Acute comminuted fracture of the distal radial metaphysis and epiphysis with intra-articular involvement. There is suggestion of impaction at the fracture site. No dislocations. No significant degenerative changes. Moderate associated soft tissue swelling. No radiographic foreign body. RAD/Wrist min 3 Views IMPRESSION: Interval placement of casting material. Acute comminuted fracture of the distal radial metaphysis and epiphysis with in tra-articular involvement again seen in similar alignment. Reading Location: [id number]
[2025-05-29 20:36] VITALS: PULSE 59; RESP 20; TEMP 36.4; O2SAT 99
== END 2025-05-29 20:38 | disposition home or self-care (01) ==
PROVIDERS: Emergency Provider Emergency Medicine; PCP Family Medicine; Visit Provider Emergency Medicine
DX: S52.572A Other intraarticular fracture of lower end of left radius, initial encounter for closed fracture (principal); W19.XXXA Unspecified fall, initial encounter
CPT/HCPCS: 29505; 73110; 99283